=== PATIENT | male | born 1980 | race African-American/Black ===

== ENCOUNTER 2016-10-04 21:11 | Emergency (ER) | payer BC ==
[2016-10-04 21:53] VITALS: BP 146/87
[2016-10-04] MEDS ORDERED: AMOXICILLIN TR/POT CLAVULANATE 500-125 MG TAB PO ONE (23:01)
[2016-10-04] MEDS ORDERED: IBUPROFEN 800 MG TABLET PO ONE (23:01)
[2016-10-04] MEDS ORDERED: AMOXICILLIN TRIHYD 250 MG CAPSULE PO ONE (23:01)
--- NOTE | 2016-10-04 23:06 | ER Document Report ---
HPI - HPI Patient complains to provider of: Throat discomfort Onset: This morning Onset/Duration: Gradual Quality of pain: Achy Pain Level: 4 Context: Patient presents complaining of pain under his tongue and swelling to the right side of his neck. Patient denies any fever. Associated Symptoms: Other - Right-sided neck swelling. denies: Fever Exacerbated by: Denies Relieved by: Denies Similar symptoms previously: No Recently seen / treated by doctor: No - ROS ROS below otherwise negative: Yes Systems Reviewed and Negative: Yes All other systems reviewed and negative - CONSTITUTIONAL Constitutional: DENIES: Fever - EENT Notes: Tenderness underneath his tongue - RESPIRATORY Respiratory: DENIES: Trouble Breathing, Coughing - GASTROINTESTINAL Gastrointestinal: DENIES: Nausea, Patient vomiting - MUSCULOSKELETAL Musculoskeletal: REPORTS: Neck Pain - DERM Skin Color: Normal Skin Problems: None Past Medical History - General Information source: Patient - Social History Smoking Status: Current Every Day Smoker Frequency of alcohol use: None Drug Abuse: None Occupation: [employer] worker Lives with: Spouse/Significant other Family History: Reviewed & Not Pertinent Patient has suicidal ideation: No Patient has homicidal ideation: No - Medical History Medical History: Negative Renal/ Medical History: Denies: Hx Peritoneal Dialysis Surgical Hx: Negative Vertical Provider Document - CONSTITUTIONAL Agree With Documented VS: Yes Exam Limitations: No Limitations General Appearance: WD/WN, No Apparent Distress - INFECTION CONTROL TRAVEL OUTSIDE OF THE [place] IN LAST 30 DAYS: No - HEENT HEENT: Atraumatic, Normocephalic Notes: Patient with mucous plug obstructing right sublingual salivary duct. Mucous plug removed and a small amount of purulent drainage spontaneously started to drain from right sublingual salivary duct - NECK Neck: Normal Inspection, Lymphadenopathy-Right - RESPIRATORY Respiratory: Breath Sounds Normal, No Respiratory Distress O2 Sat by Pulse Oximetry: 96 - CARDIOVASCULAR Cardiovascular: Regular Rate, Regular Rhythm - MUSCULOSKELETAL/EXTREMETIES Musculoskeletal/Extremeties: MAEW - NEURO Level of Consciousness: Awake, Alert, Appropriate Motor/Sensory: No Motor Deficit - DERM Integumentary: Warm, Dry Course - Vital Signs Vital signs: Temp Pulse Resp BP Pulse Ox 98.4 F 78 16 146/87 H 96 10/04/16 21:53 10/04/16 21:53 10/04/16 21:53 10/04/16 21:53 10/04/16 21:53 Discharge - Discharge Clinical Impression: Elevated blood pressure reading, Sialadenitis Condition: Stable Disposition: HOME, SELF-CARE Instructions: Augmentin ([facility]), High Blood Pressure ([facility]) Additional Instructions: Return immediately for any new or worsening symptoms Followup with your primary care provider, call tomorrow to make a followup appointment Follow-up with ears nose and throat doctor for further evaluation, call tomorrow for an appointment Stay well-hydrated Suck on sour lemon candies frequently Prescriptions: Amox Tr/Potassium Clavulanate [Augmentin 875-125 Tablet] 1 tab PO BID 10 Days tablet Ibuprofen [Motrin 600 Mg Tablet] 600 mg PO Q6H PRN #20 tablet PRN Reason: for pain Forms: Return to Work Referrals: [facility] [Provider Group] - Follow up tomorrow
== END 2016-10-04 23:35 | disposition home or self-care (01) ==
LOC: ER 21:11
DX: K11.20 Sialoadenitis, unspecified (principal); F17.200 Nicotine dependence, unspecified, uncomplicated; R03.0 Elevated blood-pressure reading, without diagnosis of hypertension
CPT/HCPCS: 99283; J3490